=== PATIENT | female | born 1965 | race African-American/Black ===

== ENCOUNTER 2022-05-24 15:34 | Emergency (ER) | payer OTHER ==
[~2022-05-24] VITALS: Ht 165.1 cm; Wt 100.0 kg
[2022-05-24] MEDS ORDERED: IBUPROFEN 800MG TABLET PO ONE (20:15)
[2022-05-24] MEDS ORDERED: METH-773 MT (21:55)
[2022-05-24] MEDS ORDERED: IBUP-2030 MT (21:55)
[2022-05-24 22:10] VITALS: BP 124/74
== END 2022-05-24 22:10 | disposition home or self-care (01) ==
LOC: ER 15:34
DX: S09.8XXA Other specified injuries of head, initial encounter (principal); M54.12 Radiculopathy, cervical region; M54.14 Radiculopathy, thoracic region; M54.16 Radiculopathy, lumbar region; I10 Essential (primary) hypertension; E11.9 Type 2 diabetes mellitus without complications; V49.49XA Driver injured in collision with other motor vehicles in traffic accident, initial encounter; Y93.89 Activity, other specified; Y92.488 Other paved roadways as the place of occurrence of the external cause; Z79.899 Other long term (current) drug therapy
CPT/HCPCS: 72070; 72100; 81025; 99284